=== PATIENT | male | born 1980 | race Caucasian/White ===

== ENCOUNTER 2019-08-30 07:27 | Day surgery (SDC) | payer OTHER ==
[~2019-08-30] VITALS: Ht 175.3 cm; Wt 59.1 kg
[~2019-08-30 07:27] MED LIST: RINGERS SOLUTION,LACTATED 1,000 ML IV ONE
[2019-08-30] MEDS ORDERED: NEOSTIGMINE METHYLSULFATE 1 MG/ML 10 ML VIAL IVP ONE (07:28)
[2019-08-30] MEDS ORDERED: PROPOFOL 1% 20 ML VIAL IVP ONE (07:28)
[2019-08-30] MEDS ORDERED: LIDOCAINE/PF 2% 5 ML VIAL IM ONE (07:28)
[2019-08-30] MEDS ORDERED: ROCURONIUM BROMIDE 10 MG/ML 5 ML VIAL IVP ONE (07:28)
[2019-08-30] MEDS ORDERED: GLYCOPYRROLATE 0.2 MG/ML VIAL IM ONE (07:28)
[2019-08-30] MEDS ORDERED: METOCLOPRAMIDE HCL 5 MG/ML 2 ML VIAL IVP ONE (07:28)
[2019-08-30] MEDS ORDERED: FentaNYL CITRATE-PF 100 MCG/2 ML VIAL IVP ONE (07:28)
[2019-08-30] MEDS ORDERED: MIDAZOLAM HCL 2 MG/2 ML VIAL IVP ONE (07:28)
[2019-08-30] MEDS ORDERED: DEXAMETHASONE SOD PHOS 4 MG/ML VIAL IVP ONE (07:28)
[2019-08-30] MEDS ORDERED: ONDANSETRON HCL 4 MG/2 ML VIAL IVP ONE (07:28)
[2019-08-30] MEDS ORDERED: AMPICILLIN SODIUM 1 GM/VIAL ONE (08:10)
[2019-08-30 08:32] LABS: BASOPHILS % (AUTO) 0.9 % (0.0-2.0); EOSINOPHILS % (AUTO) 4.2 % (1.0-6.0); HEMOGLOBIN 15.2 g/dL (13.5-17.5); LYMPHOCYTES # (AUTO) 2.5 K/uL (1.0-4.8); LYMPHOCYTES % (AUTO) 29.8 % (22.0-44.0); MEAN CORPUSCULAR HEMOGLOBIN 30.9 pg (26.0-34.0); MEAN CORPUSCULAR HGB CONC 35.4 G/dL (31.0-37.0); MEAN CORPUSCULAR VOLUME 87 fL (80-100); MONOCYTES # (AUTO) 0.7 K/uL (0.1-1.0); MONOCYTES % (AUTO) 8.4 % (2.0-9.0); NEUTROPHILS # (AUTO) 4.8 K/uL (1.8-7.7); NEUTROPHILS % (AUTO) 56.7 % (40.0-70.0); PLATELET COUNT (AUTO) 131 K/uL (150-450); RED BLOOD CELL COUNT(AUTO) 4.92 MIL/uL (4.50-5.90)
[2019-08-30 08:42] LABS: INR 1.1 (0.9-1.1); PROTHROMBIN TIME 11.2 SEC (9.4-11.6)
[2019-08-30 08:43] LABS: ANION GAP 5 mmol/L (8-16); CALCIUM, TOTAL 9.1 mg/dL (8.8-10.5); CARBON DIOXIDE 30 mmol/L (22-29); CHLORIDE 103 mmol/L (98-107); CREATININE 0.54 mg/dL (0.60-1.30); GLOMERULAR FILTR. RATE CALC > 60 mL/min (>60); GLUCOSE,RANDOM 89 mg/dL (70-110); POTASSIUM 5.2 mmol/L (3.5-5.1); SODIUM SERUM 138 mmol/L (136-145); UREA NITROGEN, BLOOD 13 mg/dL (7-18)
[2019-08-30 08:50] LABS: ALANINE AMINOTRANSFERASE 15 U/L (12-78); ALBUMIN 4.2 g/dL (3.4-5.0); ALKALINE PHOSPHATASE 49 U/L (46-116); ASPARTATE AMINOTRANSFERASE 36 U/L (15-37); BILIRUBIN,TOTAL 0.7 mg/dL (0.1-1.0); TOTAL PROTEIN, SERUM 7.8 g/dL (6.4-8.2)
[2019-08-30] MEDS ORDERED: MIDAZOLAM HCL 5 MG/ML VIAL ONE ×2 (09:00)
[2019-08-30] MEDS ORDERED: ASCO500 PO (09:28)
[2019-08-30] MEDS ORDERED: DIVA-76 PO (09:28)
[2019-08-30] MEDS ORDERED: DIVA125T32 PO ×2 (09:28)
[2019-08-30] MEDS ORDERED: CHOL100018 PO (09:28)
[2019-08-30] MEDS ORDERED: DEBROX AU (09:28)
[2019-08-30] MEDS ORDERED: MIACALCIN NASAL (09:28)
[2019-08-30] MEDS ORDERED: LEVE500T53 PO (09:28)
[2019-08-30] MEDS ORDERED: ACET-2247 PO (09:29)
[2019-08-30] MEDS ORDERED: RINGERS SOLUTION,LACTATED 0 ML IV ONE (09:50)
[2019-08-30] MEDS ORDERED: FentaNYL CITRATE-PF 100 MCG/2 ML VIAL IVP PRN (10:00)
[2019-08-30] MEDS ORDERED: OXYGEN THERAPY IH SCH (20:00)
== END 2019-08-30 15:00 | disposition home or self-care (01) ==
LOC: SURGERY 07:27
PROVIDERS: ATTEND Dentist General Practice
DX: K02.9 Dental caries, unspecified (principal); K05.30 Chronic periodontitis, unspecified; K03.6 Deposits [accretions] on teeth; G80.9 Cerebral palsy, unspecified; K21.9 Gastro-esophageal reflux disease without esophagitis; F41.9 Anxiety disorder, unspecified; G40.909 Epilepsy, unspecified, not intractable, without status epilepticus; Z79.899 Other long term (current) drug therapy; Z79.01 Long term (current) use of anticoagulants
CPT/HCPCS: 36415; 41899; 71045; 80053; 85025; 85610; 85730; 93005; J0290; J1100; J2250; J2405; J2704; J2765; J3010; J3490 ×3; J7120